=== PATIENT | female | born 1990 | race Two or more races ===

== ENCOUNTER 2024-03-11 15:22 | Emergency (ER) | payer OTHER ==
[2024-03-11] MEDS: Ketorolac 60 MG/2 ML SDV IM ONE (18:02)
== END 2024-03-11 18:30 | disposition home or self-care (01) ==
LOC: JD.ED 15:22
DX: S52.591A Other fractures of lower end of right radius, initial encounter for closed fracture (principal); Z90.710 Acquired absence of both cervix and uterus; W22.8XXA Striking against or struck by other objects, initial encounter; Y93.89 Activity, other specified
CPT/HCPCS: 29125; 73090; 96372; 99283; J1885